=== PATIENT | male | born 1985 | race African-American/Black ===

== ENCOUNTER 2021-08-07 17:02 | Inpatient (IN) | payer OTHER ==
[2021-08-07 19:06] VITALS: BMI 27.7
[2021-08-07] MEDS ORDERED: NICOTINE POLACRILEX 2 MG GUM BUC PRN (20:59)
[2021-08-07] MEDS ORDERED: MAGNESIUM HYDROX 2400MG/30ML ORAL SUSPENSION 30 ML CUP PO PRN (20:59)
[2021-08-07] MEDS ORDERED: BISMUTH SUBSALICYLATE 524 MG/30 ML PO PRN (20:59)
[2021-08-07] MEDS ORDERED: MAGNESIUM CITRATE 300 ML BOTTLE PO PRN (20:59)
[2021-08-07] MEDS ORDERED: NICOTINE 10 MG CARTRIDGE (INHALER) IH PRN (20:59)
[2021-08-07] MEDS ORDERED: MAG HYDROX/AL HYDROX/SIMETH 30 ML UNIT-DOSE CUP PO PRN (20:59)
[2021-08-07] MEDS ORDERED: IBUPROFEN 400 MG TABLET (FP) PO PRN (20:59)
[2021-08-07] MEDS ORDERED: ACETAMINOPHEN 325 MG TABLET (FP) PO PRN ×2 (20:59)
[2021-08-07] MEDS ORDERED: METHOCARBAMOL 500 MG TABLET PO PRN (20:59)
[2021-08-07] MEDS ORDERED: hydrOXYzine PAMOATE 25 MG CAPSULE (FP) PO PRN (20:59)
[2021-08-07] MEDS ORDERED: MENTHOL/PHENOL 1 EACH UD MM PRN (20:59)
[2021-08-07] MEDS ORDERED: ONDANSETRON *ODT* 4 MG TABLET SL PRN (20:59)
[2021-08-07] MEDS ORDERED: hydrOXYzine PAMOATE 50 MG CAPSULE (FP) PO ONE (23:00)
[2021-08-07] MEDS: THIAMINE HCL 100 MG TABLET (FP) PO SCH (23:01)
[2021-08-07] MEDS: MELATONIN 5 MG TABLETS PO SCH (23:01)
[2021-08-08] MEDS: PRENATAL VITAMINS W/ FOLIC ACID TABLET (FP) PO SCH (10:52)
[2021-08-08 13:42] LABS: ALBUMIN 3.7 g/dl (3.4-5.0); BLOOD UREA NITROGEN 12.3 mg/dL (7-18)
[2021-08-08 13:45] LABS: CREATININE 0.9 mg/dL (0.55-1.3)
[2021-08-08 13:46] LABS: HEMATOCRIT 45.4 % (35.4-49); HEMOGLOBIN 14.9 GM/dL (11.7-16.9); MCH 30.4 pg (25.7-33.7); MCHC 32.8 g/dl (32.0-35.9); MEAN CELL VOLUME 92.6 fl (80-96); PLATELET COUNT 367 10^3/uL (134-434); RBC 4.91 M/mm3 (4.00-5.60); RDW 13.8 % (11.9-15.9); TOT PROT 7.1 g/dl (6.4-8.2); WHITE BLOOD COUNT 3.6 K/mm3 (4.0-10.0)
[2021-08-08 13:47] LABS: BILIRUBIN,TOTAL 0.5 mg/dL (0.2-1)
[2021-08-08] MEDS: MELATONIN 5 MG TABLETS PO SCH (22:19)
[2021-08-08] MEDS: THIAMINE HCL 100 MG TABLET (FP) PO SCH (22:19)
[2021-08-09] MEDS: PRENATAL VITAMINS W/ FOLIC ACID TABLET (FP) PO SCH (10:26)
[2021-08-09] MEDS: MELATONIN 5 MG TABLETS PO SCH (21:49)
[2021-08-09] MEDS: THIAMINE HCL 100 MG TABLET (FP) PO SCH (21:49)
[2021-08-10 09:00] VITALS: TEMP 96.9
[2021-08-10] MEDS: PRENATAL VITAMINS W/ FOLIC ACID TABLET (FP) PO SCH (10:18)
[2021-08-10 12:41] VITALS: BP 140/84; PULSE 108
== END 2021-08-10 12:52 | disposition home or self-care (01) | DRG 775 ==
LOC: YASAS 17:02 → Y3N 21:07 → UNDOADMIN 21:07
PROVIDERS: ADMIT Allergy & Immunology; ATTEND Allergy & Immunology
PROC: HZ2ZZZZ Detoxification Services for Substance Abuse Treatment (ICD-10-PCS; principal; 2021-08-07)
DX: F10.230 Alcohol dependence with withdrawal, uncomplicated (principal); F17.210 Nicotine dependence, cigarettes, uncomplicated
CPT/HCPCS: 36415; 80053; 85027; 86780; C9803; U0003; U0005